=== PATIENT | female | born 1995 | race Caucasian/White ===

== ENCOUNTER 2019-02-17 14:36 | Emergency (ER) | payer BC, OTHER ==
[2019-02-17 14:42] VITALS: BP 130/83
--- NOTE | 2019-02-17 14:57 | EDPHY ---
HPI/HX/ROS/PE/MDM Narrative: CHIEF COMPLAINT: Rash near right eye HPI: This patient is a 24 y/o female with history of eczema and rosacea. She arrives today after being referred from [facility] for evaluation of a rash proximal to her right eye. She states the provider there was concerned for shingles vs. herpes. The rash has been present for about one month. It is intermittently pruritic, with some mild discomfort if she closes her eye tightly. She denies any discharge from the rash or from her eye. No visual disturbances. She has no other complaints. PHYSICAL EXAM: General:Patient is alert, in no acute distress. Right eye: Skin: Small, mildly erythematous papular rash consistent with atopic dermatitis to outside corner of the right eye, extending somewhat under the eye. No edema or swelling to lids. Eye: No injection, no trauma, no discharge, not icteric, PERRLA. ED Course: 24 y/o female presents at the request of her urgent care provider today for further evaluation of a right debora-orbital rash, ongoing for one month. This is consistent with eczema, similar to the patient's eczema presentation on the back of her neck. Given the duration of symptoms and the patient's quite reassuring presentation, I have extremely low suspicion for shingles at this time. She has no other complaints and is otherwise well-appearing. Plan to discharge home in good condition with prescription for triamcinolone 0.025% cream for treatment of her rash. I recommended follow up with dermatology. Return precautions discussed. The patient is comfortable with this plan. General Time Seen by Provider: 02/17/19 14:43 Initial Vital Signs: Initial Vital Signs Temperature (C) 36.7 C 02/17/19 14:40 Heart Rate 76 02/17/19 14:40 Respiratory Rate 16 02/17/19 14:40 Blood Pressure 130/83 H 02/17/19 14:40 O2 Sat (%) 97 02/17/19 14:40 O2 Delivery Mode Room Air Allergies/Adverse Reactions: amoxicillin [From Augmentin] Allergy (Verified 02/17/19 14:38) cefaclor [From Ceclor] Allergy (Verified 02/17/19 14:38) clavulanic acid [From Augmentin] Allergy (Verified 02/17/19 14:38) Penicillins Allergy (Verified 02/17/19 14:39) Home Medications: Medication Instructions Recorded Acyclovir 02/17/19 VYVANSE 02/17/19 Departure - Departure Disposition: Home, Routine, Self-Care Clinical Impression: Eczema Condition: Good Instructions: Eczema (ED) Additional Instructions: Apply triamcinolone 0.025% cream as prescribed. You may try this on the rash on the back of your neck as well. Please refer to the attached instructions for additional information on eczema care. Ideally, please follow up with dermatology for further evaluation. We have also provided a referral to a local primary care provider and a local clinic for follow up. Return to the emergency department for fever, worsening rash, discharge from the eye, changes in vision, or other worsening of condition or further concerns. Referrals: [facility],. [Clinic] - As per Instructions Bo Marie MD [Medical Doctor] - As per Instructions Report Scribed for: Ras Sotelo Report Scribed by: Krista Rodriguez Date of Report: 02/17/19 Time of Report: 14:59 Physician Review and Approval Statement: Portions of this note were transcribed by an ED scribe. I personally performed the history, physical exam, and medical decision making; and confirm the accuracy of the information in the transcribed note.
== END 2019-02-17 15:19 | disposition home or self-care (01) ==
DX: L30.9 Dermatitis, unspecified (principal)